=== PATIENT | female | born 1975 | race Asian ===

== ENCOUNTER 2018-10-24 14:10 | Emergency (ER) | payer BC ==
[~2018-10-24] VITALS: Ht 160 cm; Wt 90.7 kg
[2018-10-24 14:10] VITALS: BP_SYST 143
[~2018-10-24 14:10] MED LIST: NORCO5 PO
[2018-10-24] MEDS ORDERED: KETOROLAC TROMETHAMINE 30 MG VIAL IVP ONE (15:15)
[2018-10-24 15:30] VITALS: BP_SYST 165
== END 2018-10-24 15:30 | disposition home or self-care (01) ==
LOC: SED 14:10
DX: R07.89 Other chest pain (principal); I10 Essential (primary) hypertension; Z90.49 Acquired absence of other specified parts of digestive tract
CPT/HCPCS: 93005; 96374; 99283; J1885